=== PATIENT | male | born 1965 | race Caucasian/White ===

== ENCOUNTER → 2018-04-26 | Outpatient (CLI) | payer OTHER ==
[~2018-04-26] MED LIST: HYDR-2145 PO; IOHEXOL 300 MG/ML 100ML VIAL. IV ONE; LISI10TA2 PO; METO25TA4 PO; OMEP20CA9 PO
--- NOTE | 2018-04-26 14:26 | KCIC ---
CT chest with contrast 04/26/2018 CLINICAL INDICATION: Chest pain, sinus tachycardia, shortness of air and cough. COMPARISON: None. TECHNIQUE: Multiple CT images of the chest were obtained following intravenous administration of 95 mL Omnipaque 300. *One or more of the following individualized dose reduction techniques were utilized for this examination: 1. Automated exposure control. 2. Adjustment of the mA and/or kV according to patient size. 3. Use of iterative reconstruction technique. FINDINGS: Heart size is normal without significant pericardial effusion. The thoracic aorta is normal in caliber. No axillary, mediastinal or obvious hilar lymphadenopathy. Subcarinal calcified granuloma. The central airways are patent. There is a linear 0.3 cm noncalcified pulmonary nodule in the superior segment right lower lobe series 6/image 25. Calcified granuloma in the right middle lobe. Linear perifissural nodularity in the right lower lobe series 5/image 55 is considered benign. There is a retained metallic density in the medial right lower lobe. No pleural effusion or pneumothorax. There are no destructive osseous lesions. Limited images of the upper abdomen: Unremarkable. IMPRESSION: 1. No pleural effusion, pneumothorax or focal consolidation. 2. Tiny, 0.3 cm, right lower lobe noncalcified pulmonary nodule. In a low-risk patient, no additional follow-up is necessary. In a high-risk patient, follow-up CT chest in 6 months is recommended. Electronically signed by: Michel Sinclair MD (04/26/2018 2:22 PM) [id number]
== END | disposition home or self-care (01) ==
LOC: KCIC CT 09:16
PROVIDERS: ATTEND Physician Assistant
DX: Z01.818 Encounter for other preprocedural examination (principal); J84.10 Pulmonary fibrosis, unspecified; R91.1 Solitary pulmonary nodule
CPT/HCPCS: 71260; Q9967